=== PATIENT | female | born 1950 | race Caucasian/White ===

== ENCOUNTER → 2018-06-11 | Outpatient (CLI) | payer MEDICARE, OTHER ==
[~2018-06-11] MED LIST: CARDI-OMEGA1000 MG PO; FLUTICASON0.05 MG/Ac NS; GLUCOSAMINE PO; LISINOPRIL/HCTZ1 TA1 PO; LOVASTATIN40 MG PO; MACROBID 1100 MG/CAP PO
== END ==
LOC: COL.RAD 14:13
DX: M41.86 Other forms of scoliosis, lumbar region (principal); M47.816 Spondylosis without myelopathy or radiculopathy, lumbar region; M43.16 Spondylolisthesis, lumbar region; M25.512 Pain in left shoulder
CPT/HCPCS: J3301; Q9967

== ENCOUNTER → 2018-06-28 | Outpatient (CLI) | payer MEDICARE, OTHER | LOC: COL.RAD 13:24 | DX: M41.86 Other forms of scoliosis, lumbar region (principal); M47.816 Spondylosis without myelopathy or radiculopathy, lumbar region; M48.061 Spinal stenosis, lumbar region without neurogenic claudication; M99.73 Connective tissue and disc stenosis of intervertebral foramina of lumbar region; M43.16 Spondylolisthesis, lumbar region ==

== ENCOUNTER → 2020-03-12 | Outpatient (CLI) | payer MEDICARE, OTHER | LOC: COL.LAB 08:00 → EDSTATUS 03-14 10:30 → JCC 03-14 10:30 | DX: Z96.612 Presence of left artificial shoulder joint (principal) ==